=== PATIENT | female | born 1975 | race Caucasian/White ===

== ENCOUNTER 2016-06-26 17:37 | Emergency (ER) | payer OTHER ==
[2016-06-26 18:00] VITALS: TEMP 97.7; BMI 26.0
[2016-06-26 18:35] VITALS: BP 118/76; PULSE 86
--- NOTE | 2016-06-26 20:27 | PN ---
Progress Note (short form) - Note Progress Note: Came to perform FFN test on patient on behalf of Dr. Brody. FFN performed. Pt mentioned that she has been using vaginal progesterone nightly - most recently last night. Cervix examined and is closed/50/-3. Dr. Brody made aware of patient's status.
[2016-06-26] MEDS ORDERED: BETAMET ACET/BETAMET NA PH 30 MG/5 ML VIAL IM STA (21:14)
== END 2016-06-26 22:30 | disposition home or self-care (01) ==
LOC: JER 17:37
DX: O26.892 Other specified pregnancy related conditions, second trimester (principal); R10.30 Lower abdominal pain, unspecified; Z3A.22 22 weeks gestation of pregnancy
CPT/HCPCS: 36415; 82731; 99282-25

== ENCOUNTER 2016-09-29 00:20 | Inpatient (IN) | payer OTHER ==
[2016-09-29 02:10] LABS: BASOPHIL 0.3 % (0-2.0); EOSINOPHIL 0.5 % (0-4.5); MCH 22.6 pg (25.7-33.7); MCHC 30.8 g/dl (32.0-36.0); MEAN CELL VOLUME 73.3 fl (80-96); MEAN PLT VOLUME 8.3 fl (7.5-11.1); NEUTROPHILS 77.3 % (42.8-82.8); PLATELET COUNT 270 K/MM3 (134-434); RDW 19.8 % (11.6-15.6)
[2016-09-29 02:27] LABS: INR 1.01 (0.82-1.09); PROTHROMBIN TIME (PATIENT) 11.1 SEC (9.98-11.88)
[2016-09-29 02:30] LABS: ACTIVATED PTT 27.7 SECONDS (26.9-34.4)
[2016-09-29 02:35] LABS: CALCIUM 8.3 mg/dL (8.5-10.1); COCKROFT - GAULT 170.901; CREATININE 0.5 mg/dL (0.55-1.02)
[2016-09-29] MEDS ORDERED: TUBERCULIN PPD 5 TU/0.1ML SYRINGE (IN PATIENT USE ONLY) ID ONE (02:45)
[2016-09-29 03:24] LABS: HIV 1 & 2 AB NEGATIVE; HIV 1 AGp24 NEGATIVE
[2016-09-29] MEDS ORDERED: ELECTROLYTE-148 SOLN 500 ML IV ONE (03:36)
[2016-09-29] MEDS ORDERED: CITRIC ACID/SODIUM CITRATE 30 ML UNIT-DOSE CUP PO ONE ×2 (03:36)
--- NOTE | 2016-09-29 03:44 | HP ---
Past Medical History - Primary Care Physician PCP:: Madhav William - Admission Chief Complaint: 41 yo P1 with at EGA 36w5d admitted with spontaneous labor and prior section. Pt requested a repeat section. 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: No: Alzheimer's, CVA, Dementia, Migraine, Multiple Sclerosis, Peripheral Neuropathy, Parkinson's, Seizure, Syncope, TIA, Vertigo, Other Cardiovascular: No: AFIB, Aneurysm, Aortic Insufficiency, Aortic Stenosis, CAD, CHF, Deep Vein Thrombosis, HTN, Hyperlipdemia, NH, Mitral Insufficiency, Mitral Stenosis, Murmur, Pulmonary Hypertension, Other Pulmonary: No: Asthma, Bronchitis, Cancer, COPD, O2 Dependent, Pneumonia, Previously Intubated, Pulmonary Embolus, Pulmonary Fibrosis, Sleep Apnea, Other Gastrointestinal: No: Ascites, Cancer, Constipation, Crohn's Disease, Diverticulitis, Diverticulosis, Esophageal Varices, Gastritis, GERD, GI Bleed, Hemorrhoids, Hiatal Hernia, Inflamatory Bowel Disease, Irritable Bowel Disease, Pancreatitis, Peptic Ulcer Disease, Ulcerative Colitis, Other Hepatobiliary: No: Cirrhosis, Cholelithiasis, Cholecystitis, Choledocholithiasis , Hepatitis A, Hepatitis B, Hepatitis C, Other Renal/: No: Renal Failure, Renal Inusuff, BPH, Cancer, Hematuria, Hemodialysis , Neurogenic Bladder, Renal Calculi, UTI, Other Reproductive: Yes: Other (infertility, prior Asherman's syndrome) ...: 5 ...Para: 1 ...Term: 1 ...: 0 ...Spon : 1 ...Induced : 2 ... Weeks Gestation by Dates: 36.5 ...EDC by Sono: 10/22/16 Heme/Onc: Yes: Anemia, Hypercoaguable State (Factor II deficiency) Infectious Disease: No: AIDS, C-Diff, Herpes Zoster, HIV, MRSA, STD's, Tuberculosis, VREF, Other Psych: No: Addictions, Anxiety, Bipolar, Depression, Panic, Psychosis, Schizophrenia, Other Musculoskeletal: No: Bursitis, Chronic low back pain, Hemiparesis, Hemiplegia, Osteoarthritis, Paraplegia, Other Rheumatology: No: Fibromyalgia, Gout, Lupus, Rheumatoid Arthritis, Sarcoidosis, Vasculitis, Other ENT: No: Allergic Rhinitis, Sinusitis, Other Endocrine: No: [place]'s Disease, [place]'s Disease, Diabetes Insipidus, Diabetes Mellitus, Hyperparathyroidism, Hyperthyroidism, Hypothyroidism, Osteopenia, SIADH, Other Dermatology: No: Basal Cell, Cellulitis, Eczema, Melanoma, Psoriasis, Squamous Cell, Other - Past Surgical History Past Surgical History: Yes: Hx Myomectomy: No Hx Transabdominal Cerclage: No Additional Surgical History: x 1. Hysteroscopy with lysis of Adhesions - Smoking History Smoking history: Never smoked Have you smoked in the past 12 months: No Aproximately how many cigarettes per day: 0 - Alcohol/Substance Use Hx Alcohol Use: No History of Substance Use: reports: None - Social History Usual Living Arrangement: Yes: With Spouse, With Child ADL: Independent History of Recent Travel: No Home Medications - Allergies Allergies/Adverse Reactions: Allergies Allergy/AdvReac Type Severity Reaction Status Date / Time No Known Allergies Allergy Verified 09/18/16 02:11 - Home Medications Home Medications: Ambulatory Orders Vit/Iron Fumarate/FA [ Tablet] 1 tab PO DAILY 09/18/16 Docusate Sodium [Colace -] 100 mg PO DAILY 09/29/16 Ferrous Sulfate 325 mg PO DAILY 09/29/16 Vitamin D-400 400 PO DAILY 09/29/16 Family Disease History - Family Disease History Family History: Denies Review of Systems Findings/Remarks: Well appearing - Review of Systems Constitutional: reports: No Symptoms Eyes: reports: No Symptoms HENT: reports: No Symptoms Neck: reports: No Symptoms Cardiovascular: reports: No Symptoms Respiratory: reports: No Symptoms Gastrointestinal: reports: No Symptoms Genitourinary: reports: No Symptoms Breasts: reports: No Symptoms Reported Musculoskeletal: reports: No Symptoms Integumentary: reports: No Symptoms Neurological: reports: No Symptoms Endocrine: reports: No Symptoms Hematology/Lymphatic: reports: No Symptoms Psychiatric: reports: No Symptoms Pain Intensity: 6 Physical Exam - Maternity Vital Signs: Vital Signs Temperature 97.7 F 09/29/16 00:45 Pulse Rate 90 09/29/16 00:45 Respiratory Rate 20 09/29/16 00:45 Blood Pressure 133/76 09/29/16 00:45 O2 Sat by Pulse Oximetry (%) Constitutional: Yes: Well Nourished, No Distress, Calm Eyes: Yes: WNL, Conjunctiva Clear HENT: Yes: WNL, Atraumatic, Normocephalic Neck: Yes: WNL, Supple, Trachea Midline Cardiovascular: Yes: WNL, Regular Rate and Rhythm Breast(s): Yes: WNL - Abdominal Exam/OB Fundal Height: 37 Number of Fetuses: Single Presentation: Vertex Contractions: Yes Regularity: Regular Intensity: Moderate Monitor Mode: External Heart Rate (range): 135 Heart Rate Location: Midline Category: I Accelerations: Uniform Decelerations: None - Vaginal Exam/OB Vaginal Bleediing: No Speculum Exam: No Dilatation (cm): 1-2 Effacement (%): 100 Amniotic Membrane Status: Intact Presentation: Vertex/Position Station: -3 - Physical Exam Musculoskeletal: Yes: WNL Extremities: Yes: WNL Edema: Yes Edema: LLE: 1+, RLE: 1+ Integumentary: Yes: WNL Deep Tendon Reflex Grade: Normal +2 ...Motor Strength: WNL Psychiatric: Yes: WNL, Alert, Oriented - Labs Lab Results: CBC, BMP 09/29/16 01:30 09/29/16 01:30 Hemorrhage Risk Assessment - Risk Factors Medium Risk Factors: Yes: Prior , uterine surgery,or multiple laparotomies, Hematocrit < 30% & other High Risk Factors: Yes: None Risk Score: 2 Risk Level: High Risk Imaging - Results Ultrasound: Report Reviewed Assessment/Plan 41 yo P1 with at EGA 36w5d admitted with spontaneous labor and prior section. Pt requested a repeat section. Fetus with Category I tracing and requires no intervention. We discussed the risks and benefits of surgery. The pt requested to proceed with section
[2016-09-29] MEDS ORDERED: ONDANSETRON 4 MG/2 ML VIAL IVPB PRN (04:13)
--- NOTE | 2016-09-29 04:49 | OP ---
Operative Note - Note: Operative Date: 09/29/16 Pre-Operative Diagnosis: 41 yo P1 with at EGA 36w5d admitted with spontaneous labor and prior section. Pt requested a repeat section. Operation: Repeat C/S Findings: Live baby girl in vtx presentation, no meconium in amniotic fluid. 9/9. Wt 6lb 4oz. Post-Operative Diagnosis: Same as Pre-op Surgeon: Madhav William Instructor Adjunct Pharmacy Technician: Karl Lock Anesthesiologist/RETAIL LOAN ORIGINATOR ASSISTANT: Grace Morillo Anesthesia: Spinal Specimens Removed: Placenta Estimated Blood Loss (mls): 700 Drains & Tubes with Location: Banda cath Drains, Volume Out (mls): 350 Blood Volume Replaced (mls): 0 Fluid Volume Replaced (mls): 1,600 Operative Report Dictated: Yes
[2016-09-29] MEDS ORDERED: WITCH HAZEL 50% (TUCKS) 40 PAD/JAR PAD TP PRN (04:54)
[2016-09-29] MEDS ORDERED: oxyCODONE HCL 5 MG TABLET PO PRN (04:54)
[2016-09-29] MEDS ORDERED: METHYLERGONOVINE MALEATE 0.2 MG/1 ML AMP IM PRN (04:54)
[2016-09-29] MEDS: OXYTOCIN 20 UNITS in 0.9% NS 1,000 ML IV SCH ×3 (05:00→22:35)
[2016-09-29 05:15] LABS: ARTERIAL BLD GAS O2 SATURATION 36.3 % (90-98.9); ARTERIAL BLOOD GAS BASE EXCESS -2.7 meq/l (-2-2); ARTERIAL BLOOD GAS HCO3 23.3 meq/L (22-26); ARTERIAL BLOOD GAS PO2 21.3 mmHg (80-100); ARTERIAL BLOOD GAS pH 7.32 (7.35-7.45)
[2016-09-29 05:16] LABS: LPM/O2% 21%; PT. ON O2? NO
[2016-09-29 05:17] LABS: TYPE OF O2 ROOM AIR
[2016-09-29 06:02] VITALS: BMI 29.8
[2016-09-29] MEDS: IBUPROFEN 800 MG/8 ML IJ IVPB PRN ×3 (06:30→22:35)
[2016-09-29] MEDS: FERROUS SO4 325 MG TABLET (FP) PO SCH ×2 (09:34→22:53)
[2016-09-29] MEDS: PRENATAL VITAMINS W/ FOLIC ACID TABLET (FP) PO SCH (09:35)
[2016-09-29] MEDS: SIMETHICONE 80 MG TAB.CHEW (FP) PO PRN (12:20)
[2016-09-29] MEDS: ACETAMINOPHEN 325 MG TABLET (FP) PO PRN (12:20)
--- NOTE | 2016-09-29 13:15 | OP ---
DATE OF OPERATION: 09/29/2016 PREOPERATIVE DIAGNOSIS: A 41-year-old female with at estimated gestational age of 36 weeks 5 days in spontaneous labor, previous section. POSTOPERATIVE DIAGNOSIS: A 41-year-old female with at estimated gestational age of 36 weeks 5 days in spontaneous labor, previous section. PROCEDURE: Repeat section via Pfannenstiel skin incision. SURGEON: Madhav William MD SHOE STICKS REPAIRER: Karl Lock MD ANESTHESIOLOGIST: Grace Morillo MD ANESTHESIA: Spinal. COMPLICATIONS: None. ESTIMATED BLOOD LOSS: 700 mL. IV FLUIDS: 1600 mL. URINE OUTPUT: 350 mL of clear urine at the end of the procedure. PATHOLOGY: Placenta. FINDINGS: A live baby girl in vertex presentation. No meconium in amniotic fluid. Thin lower uterine segment. Normal uterus, fallopian tubes, and ovaries. DESCRIPTION OF PROCEDURE: The patient was met preoperatively. Risks, benefits, and alternatives of surgery were discussed in detail. All questions were answered. The patient requested to proceed with surgery. The patient was then brought to the OR with the IV running. She was placed on the surgical table in a sitting position. The spinal anesthesia was achieved without difficulty. The patient was placed in a supine position with a leftward tilt. The time-out proceed was conducted as per standard protocol. The patient was prepped and draped in the usual sterile fashion. A Banda catheter was inserted inside the bladder and left to drain to gravity. The surgeons then proceeded with the operation. The Pfannenstiel skin incision was made with the knife along the prior scar. The fascia was incised in the midline. The incision was extended bilaterally with Santacruz scissors. The fascia was dissected away from the rectus muscles using sharp and blunt dissection. Good hemostasis was maintained. The rectus muscles were in the midline using sharp dissection. The peritoneum was identified and entered sharply. The peritoneal incision was extended superiorly and inferiorly using Metzenbaum scissors. The bladder peritoneum was dissected away from the lower uterine segment using sharp dissection. The bladder was reflected downwards using [place] retractor. The uterine segment was noted to be very thin. The uterine incision was made transversely in the lower uterine segment. The incision was extended bilaterally using bandage scissors. The baby was delivered from vertex presentation without complications. Clear amniotic fluid was noted. The umbilical cord was clamped and cut. The baby was crying spontaneously and handed to the awaiting dry wall nailer. The placenta was delivered manually and without complications. The uterus was cleared of all clots and debris using laparotomy laps. The uterus was noted to be well contracted. The uterine incision was repaired using a 0 Biosyn suture with a running, locking stitch. Good hemostasis was noted. The uterine incision was imbricated using a secondary level of closure with the 0 Biosyn suture. Once again, good hemostasis was noted. The bladder peritoneum was also approximated using 0 Biosyn suture with good hemostasis. The abdominal peritoneum was then closed with a 2-0 chromic suture. The rectus muscles were approximated using several interrupted 2-0 chromic sutures. The fascia was closed with a 0 Vicryl suture in a running stitch. The subcutaneous adipose tissues were approximated using several interrupted 2-0 Vicryl sutures. The skin was closed with a 4-0 Vicryl suture using a subcutaneous stitch. The patient tolerated the procedure well. Sponge, lap, and instrument counts were correct. The patient was transferred to the recovery room in stable condition. Josefina [id number]
[2016-09-29] MEDS: ENOXAPARIN NA (PORCINE) 40 MG/0.4 ML DISP.SYRIN SQ SCH (22:35)
[2016-09-30] MEDS ORDERED: BISACODYL 10 MG SUPP.RECT RC PRN (04:54)
[2016-09-30] MEDS: IBUPROFEN 800 MG/8 ML IJ IVPB PRN (06:35)
--- NOTE | 2016-09-30 08:08 | PN ---
Progress Note (short form) - Note Progress Note: Post op day#1.S/P C section under spinal anesthesia with duramorph uneventful.Patient stable and has little pain for which she is on medication.No any anesthesia related problem.Patient DC from the anesthesia care.
[2016-09-30 09:17] LABS: BASOPHIL 0.8 % (0-2.0); EOSINOPHIL 0.6 % (0-4.5); MCH 22.5 pg (25.7-33.7); MCHC 30.4 g/dl (32.0-36.0); MEAN CELL VOLUME 73.9 fl (80-96); MEAN PLT VOLUME 8.6 fl (7.5-11.1); NEUTROPHILS 78.8 % (42.8-82.8); PLATELET COUNT 299 K/MM3 (134-434); RDW 20.1 % (11.6-15.6); WHITE BLOOD COUNT 12.5 K/mm3 (4.0-10.0)
--- NOTE | 2016-09-30 09:26 | PN ---
Post Progress Note - Subjective Subjective: Patient without acute complaints. Reports tolerating oral intake without nausea or vomiting. Ambulating without dizziness. Denies fevers or chills. Pain well controlled with oral pain medication. Desires to breast and bottle feed Passing flatus. Post Day: 1 Type of Delivery: Repeat C/S Vital Signs: Vital Signs Temperature 98.8 F 09/30/16 09:14 Pulse Rate 55 L 09/30/16 09:14 Respiratory Rate 20 09/30/16 09:14 Blood Pressure 98/55 09/30/16 09:14 O2 Sat by Pulse Oximetry (%) 100 09/29/16 07:50 Uterus: Yes: Fundus Firm, Fundus below umbilicus Incision: Yes: Dressing dry and intact Abdomen/GI: Yes: Abdomen soft. No: Tender Lochia, amount: Small Extremities: Yes: Calves non-tender Activity: Ambulating - Labs Labs: CBC WBC 12.5 K/mm3 (4.0-10.0) H 09/30/16 08:00 RBC 4.23 M/mm3 (3.60-5.2) 09/30/16 08:00 Hgb 9.5 GM/dL (10.7-15.3) L 09/30/16 08:00 Hct 31.3 % (32.4-45.2) L 09/30/16 08:00 MCV 73.9 fl (80-96) L 09/30/16 08:00 MCHC 30.4 g/dl (32.0-36.0) L 09/30/16 08:00 RDW 20.1 % (11.6-15.6) H 09/30/16 08:00 Plt Count 299 K/MM3 (134-434) 09/30/16 08:00 MPV 8.6 fl (7.5-11.1) 09/30/16 08:00 Neutrophils % 78.8 % (42.8-82.8) 09/30/16 08:00 Lymphocytes % 14.9 % (8-40) 09/30/16 08:00 Monocytes % 4.9 % (3.8-10.2) 09/30/16 08:00 Eosinophils % 0.6 % (0-4.5) 09/30/16 08:00 Basophils % 0.8 % (0-2.0) 09/30/16 08:00 Assessment/Plan 41 yo POD # 1 s/p repeat CD, doing well 1. Continue routine postoperative care. 2. AM CBC without anemia 3. Rh negative, will f/u Rhogam protocol as indicated 4. Encourage ambulation and incentive spirometer use 5. Continue oral pain medication 6. Anticipate discharge home postoperative day #3 or #4
[2016-09-30] MEDS: OXYTOCIN 20 UNITS in 0.9% NS 1,000 ML IV SCH (10:02)
[2016-09-30] MEDS: ENOXAPARIN NA (PORCINE) 40 MG/0.4 ML DISP.SYRIN SQ SCH ×2 (10:05→22:11)
[2016-09-30] MEDS: FERROUS SO4 325 MG TABLET (FP) PO SCH ×2 (10:05→21:26)
[2016-09-30] MEDS: PRENATAL VITAMINS W/ FOLIC ACID TABLET (FP) PO SCH (10:05)
[2016-09-30 10:20] LABS: ANISOCYTOSIS 2+; HYPOCHROMIA 1+; MICROCYTOSIS 1+
[2016-09-30] MEDS: SIMETHICONE 80 MG TAB.CHEW (FP) PO PRN ×3 (11:54→19:54)
[2016-09-30] MEDS: IBUPROFEN 600 MG TABLET (FP) PO PRN ×3 (11:54→19:54)
[2016-09-30] MEDS: ACETAMINOPHEN 325 MG TABLET (FP) PO PRN ×3 (11:55→19:54)
[2016-09-30] MEDS: SENNOSIDES/DOCUSATE COMBO (SENNA PLUS) TABLET (UD) PO PRN (19:54)
[2016-10-01] MEDS: SIMETHICONE 80 MG TAB.CHEW (FP) PO PRN ×6 (00:05→20:56)
[2016-10-01] MEDS: ACETAMINOPHEN 325 MG TABLET (FP) PO PRN ×6 (00:05→20:52)
[2016-10-01] MEDS: IBUPROFEN 600 MG TABLET (FP) PO PRN ×6 (00:05→20:49)
[2016-10-01] MEDS: OXYTOCIN 20 UNITS in 0.9% NS 1,000 ML IV SCH (05:45)
[2016-10-01] MEDS ORDERED: ZOLPIDEM TARTRATE 5 MG TABLET PO PRN (09:15)
--- NOTE | 2016-10-01 09:15 | PN ---
Progress Note (short form) - Note Progress Note: pod 2 doing well, no c/o, unable to sleep CBC, BMP 09/30/16 08:00 09/29/16 01:30 Last Vital Signs Temp Pulse Resp BP Pulse Ox 97.5 F L 69 20 126/70 100 09/30/16 19:58 09/30/16 19:58 09/30/16 19:58 09/30/16 19:58 09/29/16 07:50 abdomen soft, no distension, incision dry, clean no calf tenderness plan ambulate, wants sleeping aid
[2016-10-01] MEDS: FERROUS SO4 325 MG TABLET (FP) PO SCH ×2 (10:09→21:30)
[2016-10-01] MEDS: PRENATAL VITAMINS W/ FOLIC ACID TABLET (FP) PO SCH (10:09)
[2016-10-01] MEDS: SENNOSIDES/DOCUSATE COMBO (SENNA PLUS) TABLET (UD) PO PRN (21:32)
[2016-10-01] MEDS: ENOXAPARIN NA (PORCINE) 40 MG/0.4 ML DISP.SYRIN SQ SCH (21:32)
[2016-10-02] MEDS: SIMETHICONE 80 MG TAB.CHEW (FP) PO PRN ×5 (05:41→21:56)
[2016-10-02] MEDS: IBUPROFEN 600 MG TABLET (FP) PO PRN ×5 (05:42→21:56)
[2016-10-02] MEDS: ACETAMINOPHEN 325 MG TABLET (FP) PO PRN ×5 (05:45→21:57)
[2016-10-02 09:02] LABS: BASOPHIL 0.8 % (0-2.0); EOSINOPHIL 1.2 % (0-4.5); MCH 23.2 pg (25.7-33.7); MCHC 31.1 g/dl (32.0-36.0); MEAN CELL VOLUME 74.4 fl (80-96); MEAN PLT VOLUME 8.1 fl (7.5-11.1); NEUTROPHILS 70.4 % (42.8-82.8); PLATELET COUNT 312 K/MM3 (134-434); RDW 20.6 % (11.6-15.6); WHITE BLOOD COUNT 8.1 K/mm3 (4.0-10.0)
--- NOTE | 2016-10-02 10:04 | PN ---
Post Progress Note - Subjective Subjective: Patient without acute complaints. Reports tolerating oral intake without nausea or vomiting. Ambulating without dizziness. Denies fevers or chills. Pain well controlled with oral pain medication. Breast and bottle feeding. Passing flatus. Type of Delivery: Repeat C/S Vital Signs: Vital Signs Temperature 98 F 10/01/16 22:00 Pulse Rate 61 10/01/16 22:00 Respiratory Rate 18 10/01/16 22:00 Blood Pressure 128/69 10/01/16 22:00 O2 Sat by Pulse Oximetry (%) 100 09/29/16 07:50 Uterus: Yes: Fundus Firm, Fundus below umbilicus Incision: Yes: Sutures intact. No: Redness, Oozing Abdomen/GI: Yes: Abdomen soft. No: Tender Lochia: Yes: Serosa Activity: Ambulating - Labs Labs: CBC WBC 8.1 K/mm3 (4.0-10.0) D 10/02/16 08:00 RBC 3.94 M/mm3 (3.60-5.2) 10/02/16 08:00 Hgb 9.1 GM/dL (10.7-15.3) L 10/02/16 08:00 Hct 29.3 % (32.4-45.2) L 10/02/16 08:00 MCV 74.4 fl (80-96) L 10/02/16 08:00 MCHC 31.1 g/dl (32.0-36.0) L 10/02/16 08:00 RDW 20.6 % (11.6-15.6) H 10/02/16 08:00 Plt Count 312 K/MM3 (134-434) 10/02/16 08:00 MPV 8.1 fl (7.5-11.1) 10/02/16 08:00 Neutrophils % 70.4 % (42.8-82.8) 10/02/16 08:00 Lymphocytes % 22.5 % (8-40) D 10/02/16 08:00 Monocytes % 5.1 % (3.8-10.2) 10/02/16 08:00 Eosinophils % 1.2 % (0-4.5) D 10/02/16 08:00 Basophils % 0.8 % (0-2.0) 10/02/16 08:00 Hypochromic-Microcytic 1+ 09/30/16 08:00 Anisocytosis 2+ 09/30/16 08:00 Microcytosis 1+ 09/30/16 08:00 Macrocytosis Few 09/30/16 08:00 Assessment/Plan 41 yo POD # 3 s/p repeat CD, doing well 1. Continue routine postoperative care. 2. Encourage ambulation and incentive spirometer use 3. Continue oral pain medication 4. Anticipate discharge home postoperative day #4
[2016-10-02] MEDS: FERROUS SO4 325 MG TABLET (FP) PO SCH ×2 (10:14→21:56)
[2016-10-02] MEDS: PRENATAL VITAMINS W/ FOLIC ACID TABLET (FP) PO SCH (10:14)
[2016-10-02] MEDS ORDERED: DIPHTH,PERTUSS(ACELL),TET 0.5 ML DISP.SYRIN IM ONE (12:00)
[2016-10-02] MEDS: ENOXAPARIN NA (PORCINE) 40 MG/0.4 ML DISP.SYRIN SQ SCH (21:56)
[2016-10-03] MEDS: IBUPROFEN 600 MG TABLET (FP) PO PRN ×2 (01:58→06:07)
[2016-10-03] MEDS: ACETAMINOPHEN 325 MG TABLET (FP) PO PRN ×2 (01:59→06:07)
[2016-10-03] MEDS: SIMETHICONE 80 MG TAB.CHEW (FP) PO PRN (06:07)
[2016-10-03 08:59] VITALS: BP 125/45; PULSE 55; TEMP 97.6
[2016-10-03] MEDS: FERROUS SO4 325 MG TABLET (FP) PO SCH (10:41)
[2016-10-03] MEDS: PRENATAL VITAMINS W/ FOLIC ACID TABLET (FP) PO SCH (10:41)
--- NOTE | 2016-10-03 10:47 | PN ---
Post Progress Note - Subjective Subjective: Patient without acute complaints. Reports tolerating oral intake without nausea or vomiting. Ambulating without dizziness. Denies fevers or chills. Pain well controlled with oral pain medication. Bottlefeedig + supplementation. Passing flatus. Post Day: 4 Type of Delivery: Repeat C/S Vital Signs: Vital Signs Temperature 97.6 F 10/03/16 08:55 Pulse Rate 55 L 10/03/16 08:55 Respiratory Rate 18 10/03/16 08:55 Blood Pressure 125/45 10/03/16 08:55 O2 Sat by Pulse Oximetry (%) 100 09/29/16 07:50 Breast Exam: Yes: Engorged Uterus: Yes: Fundus Firm, Fundus below umbilicus Incision: Yes: Sutures intact. No: Redness, Oozing Abdomen/GI: Yes: Abdomen soft, Passing flatus, Tolerating PO. No: Abdominal Distention, Tender Lochia: Yes: Serosa Lochia, amount: Small Extremities: Yes: Calves non-tender, Edema - Labs Labs: CBC WBC 8.1 K/mm3 (4.0-10.0) D 10/02/16 08:00 RBC 3.94 M/mm3 (3.60-5.2) 10/02/16 08:00 Hgb 9.1 GM/dL (10.7-15.3) L 10/02/16 08:00 Hct 29.3 % (32.4-45.2) L 10/02/16 08:00 MCV 74.4 fl (80-96) L 10/02/16 08:00 MCHC 31.1 g/dl (32.0-36.0) L 10/02/16 08:00 RDW 20.6 % (11.6-15.6) H 10/02/16 08:00 Plt Count 312 K/MM3 (134-434) 10/02/16 08:00 MPV 8.1 fl (7.5-11.1) 10/02/16 08:00 Neutrophils % 70.4 % (42.8-82.8) 10/02/16 08:00 Lymphocytes % 22.5 % (8-40) D 10/02/16 08:00 Monocytes % 5.1 % (3.8-10.2) 10/02/16 08:00 Eosinophils % 1.2 % (0-4.5) D 10/02/16 08:00 Basophils % 0.8 % (0-2.0) 10/02/16 08:00 Hypochromic-Microcytic 1+ 09/30/16 08:00 Anisocytosis 2+ 09/30/16 08:00 Microcytosis 1+ 09/30/16 08:00 Macrocytosis Few 09/30/16 08:00 Assessment/Plan 41 yo POD # 4 s/p repeat CD, doing well 1. Patient stable for discharge home today. 2. Patient encouraged to contact MD for: - Severe pain not controlled by oral pain medication - Fevers or chills - Nausea or vomiting, intolerance of oral intake - Incision redness, tenderness or discharge 3. Patient to follow up in office in 1-2 weeks for incision check, 4-6 weeks for visit
--- NOTE | 2016-10-06 13:24 | PATH ---
Surgical Pathology Report Patient Name: MICHELLE GUERRERO Med. Rec. #: [id number] /Age/Gender: 1975 (Age: 41) / F Account: [id number] Location: [facility] OBS/COLORER HIDES AND SKINS Taken: 09/29/2016 Received: 09/29/2016 Reported: 10/06/2016 Physicians: Madhav William M.D. Specimen(s) Received PLACENTA Clinical History , asthma, Asherman's syndrome, IVF , shortened cervix; previous c/section 12/2014 Repeat c/section Final Diagnosis PLACENTA, DELIVERY: FOCALLY DISRUPTED THIRD TRIMESTER PLACENTA WITH MODERATE PREVILLOUS, PERIVILLOUS, AND PRECHORIONIC FIBRIN DEPOSITION, THREE VESSEL UMBILICAL CORD, AND PLACENTAL MEMBRANES WITH FOCAL AMNION HYPERPLASIA. Electronically Signed Leonardo Garcia M.D. Gross Description The specimen is received fresh, labeled "placenta" and is a 515 gram, 18.3 x 16.8 x 3.2 cm placenta with attached membranes and umbilical cord. The attached membranes are joy, translucent with focal opacities and insert marginally. The umbilical cord measures 18 cm in length and averages 1 cm in diameter. The cord inserts eccentrically, 5 cm to the nearest margin. No true knots or strictures are identified. Cut surface of the umbilical cord reveals 3 vessels. The surface is selby-blue with fibrin deposition and appropriate caliber vessels. The maternal surface is red-brown with focal defects. Sectioning reveals red-brown, spongy parenchyma. No focal lesions are identified. Bull Gang Supervisor sections are submitted in three cassettes as follows: 1- membrane rolls and umbilical cord; 2-3- full thickness sections of placenta. 10/05/2016 [facility]10/05/2016
== END 2016-10-03 13:00 | disposition home or self-care (01) | DRG 766 ==
LOC: JDEL 00:20 → JLDR 01:20 → J3W 08:15
PROVIDERS: ADMIT Obstetrics & Gynecology; ATTEND Obstetrics & Gynecology
PROC: 10D00Z1 Extraction of Products of Conception, Low, Open Approach (ICD-10-PCS; principal; 2016-09-29)
PROC: 30233S1 Transfusion of Nonautologous Globulin into Peripheral Vein, Percutaneous Approach (ICD-10-PCS; 2016-09-29)
DX: O34.211 Maternal care for low transverse scar from previous cesarean delivery (principal); Z3A.36 36 weeks gestation of pregnancy; Z37.0 Single live birth
CPT/HCPCS: 36415; 36600; 80048; 82803; 85025; 85461; 85610; 85730; 86593; 86850; 86870; 86900; 86901; 86902; 86999; 87389; 88307-TC; 90715